=== PATIENT | female | born 1960 | race Caucasian/White ===

== ENCOUNTER → 2017-11-25 | Outpatient (CLI) | payer BC ==
[~2017-11-25] MED LIST: ASPI81CH PO; LEVO-T75 MCG PO; TRAZ100 PO; VENL75ER PO
== END ==
LOC: LAB SHORT 08:40 → LAB 08:40
PROVIDERS: Student in an Organized Health Care Education/Training Program
DX: Z01.419 Encounter for gynecological examination (general) (routine) without abnormal findings (principal)
CPT/HCPCS: G0145

== ENCOUNTER → 2018-08-08 | Outpatient (CLI) | payer BC | LOC: LAB EV 12:04 → LAB SHORT 12:04 | DX: N39.0 Urinary tract infection, site not specified (principal) | CPT/HCPCS: 87086 ==

== ENCOUNTER → 2019-11-07 | Outpatient (CLI) | payer BC | LOC: LAB SHORT 12:12 → PLD 12:12 | DX: D48.5 Neoplasm of uncertain behavior of skin (principal) | CPT/HCPCS: 88342 ==

== ENCOUNTER → 2023-09-13 | Outpatient (CLI) | payer MEDICARE, BC ==
[2023-09-26 15:20] LABS: HPV HIGH RISK BY TMA Not Detected; HPV SOURCE Vaginal
== END ==
LOC: LAB 09-12 18:40 → LAB SHORT 09-12 18:40 → LAB 10:40
PROVIDERS: Family Medicine
DX: Z01.419 Encounter for gynecological examination (general) (routine) without abnormal findings (principal)
CPT/HCPCS: 87624; G0123

== ENCOUNTER → 2024-08-23 | Outpatient (CLI) | payer MEDICARE, BC ==
[2024-08-23 19:57] LABS: Adenovirus Not Detected (NOT DETECT); Bordetella pertussis Not Detected (NOT DETECT); Chlamydophila pneumoniae Not Detected (NOT DETECT); Coronavirus 229E Not Detected (NOT DETECT); Coronavirus HKU1 Not Detected (NOT DETECT); Coronavirus NL63 Not Detected (NOT DETECT); Coronavirus OC43 Not Detected (NOT DETECT); Human Metapneumovirus Not Detected (NOT DETECT); Human Rhinovirus/Enterovirus Detected (NOT DETECT); Influenza A/2009-H1 Not Detected (NOT DETECT); Influenza A/H1 Not Detected (NOT DETECT); Influenza A/H3 Not Detected (NOT DETECT); Influenza B Not Detected (NOT DETECT); Mycoplasma pneumoniae Not Detected (NOT DETECT); Parainfluenza Virus 1 Not Detected (NOT DETECT); Parainfluenza Virus 2 Not Detected (NOT DETECT); Parainfluenza Virus 3 Not Detected (NOT DETECT); Parainfluenza Virus 4 Not Detected (NOT DETECT); Respiratory Syncytial Virus Not Detected (NOT DETECT); SARS-Cov-2 (COVID-19), BioFire Not Detected (NOT DETECT)
== END ==
LOC: LAB 18:52 → LAB SHORT 18:52
PROVIDERS: Student in an Organized Health Care Education/Training Program
DX: J06.9 Acute upper respiratory infection, unspecified (principal)
CPT/HCPCS: 0202U

== ENCOUNTER 2024-10-24 11:46 | Inpatient (IN) | payer MEDICARE, BC ==
[~2024-10-24] VITALS: Ht 160 cm; Wt 79.0 kg
[2024-10-24] MEDS ORDERED: Ketorolac Tromethamine 15mg Vial IV ONE (13:35)
[2024-10-24 13:39] LABS: BASOPHILS ABSOLUTE AUTO 0.04 K/mm3 (0.00-0.23); BASOPHILS PERCENT AUTO 1 % (0-2); EOSINOPHILS ABSOLUTE AUTO 0.06 K/mm3 (0.00-0.68); EOSINOPHILS PERCENT AUTO 1 % (0-6); Hematocrit 36.6 % (33.0-51.0); Hemoglobin 12.1 g/dL (11.5-16.0); IMMATURE GRAN ABSOLUTE AUTO 0.04 K/mm3 (0.00-0.10); IMMATURE GRAN PERCENT AUTO 1 % (0-1); LYMPHOCYTES ABSOLUTE AUTO 1.20 K/mm3 (0.84-5.20); LYMPHOCYTES PERCENT AUTO 16 % (21-46); MONOCYTES ABSOLUTE AUTO 0.49 K/mm3 (0.16-1.47); MONOCYTES PERCENT AUTO 6 % (4-13); Mean Corpuscular HGB Conc 33.1 g/dL (31.5-36.5); Mean Corpuscular Volume 90 fL (80-100); NEUTROPHILS ABSOLUTE AUTO 5.79 K/mm3 (1.96-9.15); NEUTROPHILS PERCENT AUTO 76 % (41-73); NRBC ABSOLUTE 0.00 K/mm3 (0.00-0.02); NRBC Auto 0.0 /100 WBC (0.0-0.2); Platelet Count 258 K/mm3 (150-400); RDW Coefficient Variation 12.6 % (11.7-14.2); RDW Standard Deviation 42.0 fL (35.1-46.3)
[2024-10-24 14:22] LABS: Alanine Aminotransfer (ALT/SGP 21.0 U/L (12-78); Albumin, Blood 3.5 g/dL (3.4-5.0); Albumin/Globulin Ratio 1.1 (0.8-1.8); Anion Gap 7.0 mmol/L (3-11); Aspartate Aminotrans (AST/SGOT 18.0 U/L (12-37); Bilirubin, Total 0.5 mg/dL (0.1-1.0); Blood Urea Nitrogen 8.0 mg/dL (8-24); CO2, Blood 28.0 mmol/L (21-32); Calcium, Blood 8.5 mg/dL (8.5-10.1); Chloride, Blood 104.0 mmol/L (98-108); Creatinine, Blood 0.76 mg/dL (0.40-1.00); Globulin, Blood 3.2 g/dL (2.2-4.0); Glucose, Blood 91.0 mg/dL (70-99); Potassium, Blood 4.1 mmol/L (3.5-5.5); Sodium, Blood 135.0 mmol/L (136-145); Total Protein, Blood 6.7 g/dL (6.4-8.2)
[2024-10-24] MEDS ORDERED: CeFAZolin Sodium 2,000 MG in NS 100 ML IV SCH (14:40)
[2024-10-24] MEDS ORDERED: Tranexamic Acid 100 ML IV SCH (14:40)
[2024-10-24 16:44] VITALS: BP 146/100
[2024-10-24] MEDS ORDERED: LOSA50 PO (16:56)
[2024-10-24] MEDS ORDERED: ALBU2.5V5 INH (16:58)
[2024-10-24] MEDS ORDERED: IBU600 M1 PO (17:01)
[2024-10-24] MEDS ORDERED: Flonase 0.05% N16 GM (17:02)
--- NOTE | 2024-10-24 18:38 | NUR ---
SHIFT SUMMARY PT AOX4, COOPERATIVE, ABLE TO MAKE NEEDS KNOWN. PT IS BEDREST CURRENLTY WITH PURE WICK CATHETER. ROLLING TO RIGHT SIDE IS PAINFUL AND SLOW AND PT IS ABLE TO ROLL. ON ROOM AIR. NPO AFTER MIDNIGHT FOR PROCEDURE TOMORROW. BED IN LOWEST POSITION, CALL LIGHT WITHIN REACH.
[2024-10-24 19:40] VITALS: BP 134/96
[2024-10-24] MEDS ORDERED: Ketorolac Tromethamine 15mg Vial IV PRN (21:15)
[2024-10-25] VITALS (14 sets, daily range): BP systolic 119–164; BP diastolic 69–92
[2024-10-25 04:42] LABS: BASOPHILS ABSOLUTE AUTO 0.02 K/mm3 (0.00-0.23); BASOPHILS PERCENT AUTO 0 % (0-2); EOSINOPHILS ABSOLUTE AUTO 0.14 K/mm3 (0.00-0.68); EOSINOPHILS PERCENT AUTO 2 % (0-6); Hematocrit 34.8 % (33.0-51.0); Hemoglobin 11.7 g/dL (11.5-16.0); IMMATURE GRAN ABSOLUTE AUTO 0.02 K/mm3 (0.00-0.10); IMMATURE GRAN PERCENT AUTO 0 % (0-1); LYMPHOCYTES ABSOLUTE AUTO 1.43 K/mm3 (0.84-5.20); LYMPHOCYTES PERCENT AUTO 18 % (21-46); MONOCYTES ABSOLUTE AUTO 0.60 K/mm3 (0.16-1.47); MONOCYTES PERCENT AUTO 8 % (4-13); Mean Corpuscular HGB Conc 33.6 g/dL (31.5-36.5); Mean Corpuscular Volume 89 fL (80-100); NEUTROPHILS ABSOLUTE AUTO 5.62 K/mm3 (1.96-9.15); NEUTROPHILS PERCENT AUTO 72 % (41-73); NRBC ABSOLUTE 0.00 K/mm3 (0.00-0.02); NRBC Auto 0.0 /100 WBC (0.0-0.2); Platelet Count 237 K/mm3 (150-400); RDW Coefficient Variation 12.7 % (11.7-14.2); RDW Standard Deviation 40.8 fL (35.1-46.3)
[2024-10-25 06:06] LABS: Anion Gap 9.0 mmol/L (3-11); Blood Urea Nitrogen 9.0 mg/dL (8-24); CO2, Blood 27.0 mmol/L (21-32); Calcium, Blood 8.2 mg/dL (8.5-10.1); Chloride, Blood 103.0 mmol/L (98-108); Creatinine, Blood 0.79 mg/dL (0.40-1.00); Glucose, Blood 103.0 mg/dL (70-99); Potassium, Blood 3.6 mmol/L (3.5-5.5); Sodium, Blood 135.0 mmol/L (136-145)
--- NOTE | 2024-10-25 06:10 | NUR ---
SHIFT SUMMARY PT HAS RESTED T/O THE NIGHT. RIGHT HIP FRACTURE WITH PLANS FOR PROCEDURE TODAY. PAIN HAS BEEN MANAGED PER EMAR. PT HAS BEEN NPO SINCE MIDNIGHT. PT VOIDING, VITALS STABLE. PLAN OF CARE UNCHANGED OVERNIGHT. BED IN LOWEST POSITION, CALL LIGHT WITHIN REACH.
[2024-10-25] MEDS ORDERED: Dexamethasone Sod Phos 10 MG/ML 1ML VIAL ONE (10:36)
[2024-10-25] MEDS ORDERED: Ondansetron HCl 2 MG / ML 2ML Vial ONE (10:36)
[2024-10-25] MEDS ORDERED: FentaNYL Citrate 50 MCG/ML 2 ML Injection ONE (10:38)
[2024-10-25] MEDS ORDERED: NS 1,000 ML IV ONE (10:40)
[2024-10-25] MEDS ORDERED: Prochlorperazine Edisylate 10 mg Vial IV PRN (10:45)
[2024-10-25] MEDS ORDERED: FentaNYL Citrate 50 MCG/ML 2 ML Injection IV PRN ×2 (10:45→10:50)
[2024-10-25] MEDS ORDERED: Albuterol 2.5 MG/3 ML VIAL INH PRN (10:45)
[2024-10-25] MEDS ORDERED: HYDROmorphone HCl/Pf 1MG SYR IV PRN (10:50)
[2024-10-25] MEDS ORDERED: Metoclopramide HCl 5MG / ML 2ML Vial IV PRN (10:50)
[2024-10-25] MEDS ORDERED: Ondansetron HCl 2 MG / ML 2ML Vial IV PRN (10:50)
[2024-10-25] MEDS ORDERED: Midazolam HCl 1MG / ML 2ML Vial IV PRN (10:50)
--- NOTE | 2024-10-25 11:59 | NUR ---
PT HAS 20G IV TO RIGHT AC THAT FLUSHES WELL AND FLOWS TO GRAVITY.
[2024-10-25] MEDS ORDERED: Bupivacaine 0.5% W/EPI 1:200000 SDV 30 ML Vial ONE (12:16)
--- NOTE | 2024-10-25 12:32 | NUR ---
PT BROUGHT FROM FLOOR TO DAY SURGERY FOR PROCEDURE W/DR WATKINS. History, Chart, Medications and Allergies reviewed before start of procedure. Lungs clear T/O to Auscultation. Patient confirms NPO status and agrees with scheduled surgery. Pre-Op teaching done. Pt verbalizes understanding. PT BELONGINGS LEFT IN PERSONAL ROOM ON SURGICAL FLOOR. PT WATCH TAKEN BACK TO PERSONAL ROOM ON SURGICAL FLOOR FOR SAFEKEEPING.
[2024-10-25] MEDS ORDERED: Glycopyrrolate 0.2 MG/ML 5ML VIAL ONE (13:12)
--- NOTE | 2024-10-25 18:50 | NUR ---
SHIFT SUMMARY POD0 R HIP PINNING, A/OX4, VSS, TOLERATING PO, DENIES PAIN SINCE SURGERY TODAY, UP ONCE TO USE THE BATHROOM, SHE HAS NOT SEEN THERAPY YET. NO ACUTE EVENTS THIS SHIFT, CALL LIGHT IN REACH.
--- NOTE | 2024-10-26 05:17 | NUR ---
NOC SUMMARY- PT PAIN MANAGED WELL. PT HAS BEEN RESTING COMFORTABLY. PT DRESSING C/D/I. PT HAD NO NEW ISSUES. PT VOIDING AND TOLERATING PO. CALL LIGHT IN REACH.
[2024-10-26 07:05] VITALS: BP 129/74
[2024-10-26] MEDS ORDERED: HYDR1TAB94 PO (12:24)
[2024-10-26] MEDS ORDERED: SENN187 PO (12:24)
--- NOTE | 2024-10-26 14:00 | NUR ---
DISCHARGE PT AND HER SPOUSE WERE PROVIDED WITH WRITTEN AND VERBAL DISCHARGE INSTRUCTIONS, THEY REPORTED UNDERSTANDING. PRESCRIPTION AND DRESSINGS SENT WITH PATIENT. PT ASSISTED OUT AT APPROXIMATELY 1410.
== END 2024-10-26 13:45 | disposition home or self-care (01) | DRG 482 ==
LOC: ER 11:46 → SURS 15:03
PROVIDERS: Orthopaedic Surgery; Physician Assistant; ADMIT Internal Medicine
PROC: 0QS634Z Reposition Right Upper Femur with Internal Fixation Device, Percutaneous Approach (ICD-10-PCS; principal; 2024-10-25 12:30)
DX: S72.001A Fracture of unspecified part of neck of right femur, initial encounter for closed fracture (principal); I10 Essential (primary) hypertension; E03.9 Hypothyroidism, unspecified; F32.A Depression, unspecified; D32.0 Benign neoplasm of cerebral meninges; W03.XXXA Other fall on same level due to collision with another person, initial encounter; Z79.82 Long term (current) use of aspirin; Z79.890 Hormone replacement therapy; Z85.828 Personal history of other malignant neoplasm of skin; Z87.891 Personal history of nicotine dependence
CPT/HCPCS: 36415; 70450; 70553; 72125; 72192; 73502; 80048; 80053; 85025; 97110; 97116; 97162; 99285-25; A9270; A9579; C1713; C1769; J0690; J1100; J1885; J2250; J2405; J2704; J3010; J7120